=== PATIENT | female | born 1995 | race Caucasian/White ===

== ENCOUNTER 2018-05-07 10:12 | Emergency (ER) | payer OTHER ==
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
[2018-05-07 12:53] VITALS: BP 116/73
--- NOTE | 2018-05-07 16:05 | XCELERA REPORT ---
[address] [facility] [id number] Lower Extremity Venous Evaluation Procedure: Color flow and duplex imaging of the veins of the left lower extremity as well as the right Common Femoral vein. Right Sided Venous Evaluation The right common femoral vein is fully compressible. Spontaneous and phasic flow is present in the right common femoral vein. Left Sided Venous Evaluation Normal vessel filling wall to wall, compression and augmentation as well as Colour flow down to the infrageniculate veins. Interpretation Summary No duplex evidence of DVT or obstruction in the left lower extremity nor in the right Common Femoral vein. Name: DANISHA DOLAN Age: 22 yrs Gender: Female : 1995 Patient Status: Emergency Patient Location: ER Study Date: 05/07/2018 11:48 AM Reason For Study: left lateral thigh pain for 1 month Ordering Physician: KEN ROSADO Performed By: Brandy Le : KEN ROSADO > Francisco Chu
== END 2018-05-07 12:53 | disposition home or self-care (01) ==
LOC: ER 10:12
DX: S76.912A Strain of unspecified muscles, fascia and tendons at thigh level, left thigh, initial encounter (principal); M79.652 Pain in left thigh; V49.9XXA Car occupant (driver) (passenger) injured in unspecified traffic accident, initial encounter
CPT/HCPCS: 93971; 99283